=== PATIENT | female | born 1985 ===

== ENCOUNTER 2017-10-09 15:50 | Emergency (ER) | payer OTHER ==
[2017-10-09] MEDS ORDERED: Tdap Vaccine 0.5 ml Vial (10-64 yrs) IM ONE ×2 (16:47→17:06)
--- NOTE | 2017-10-09 16:48 | C.PDOC ---
History Of Present Illness 31 y/o female presents to the ER complaining of a right hand laceration sustained while she was washing a glass and cut her hand last night. Patient states that she put some type of cream in the cut. Denies having weakness and numbness. Time Seen by Provider: 10/09/17 16:07 Chief Complaint (Nursing): Abnormal Skin Integrity History Per: Patient History/Exam Limitations: no limitations Onset/Duration Of Symptoms: Days Current Symptoms Are (Timing): Still Present Severity: Moderate Past Medical History Reviewed: Historical Data, Nursing Documentation, Vital Signs Vital Signs: Last Vital Signs Temp 98.9 F 10/09/17 17:11 Pulse 65 10/09/17 17:11 Resp 18 10/09/17 17:11 BP 104/70 10/09/17 17:11 Pulse Ox 100 10/09/17 18:36 - Medical History PMH: No Chronic Diseases Other Surgeries: Hx of surgeries Family History: States: No Known Family Hx - Social History Hx Alcohol Use: No Hx Substance Use: No - Immunization History Hx Tetanus Toxoid Vaccination: Yes (5 years ago) Hx Influenza Vaccination: No Hx Pneumococcal Vaccination: No Review Of Systems Except As Marked, All Systems Reviewed And Found Negative. Skin: Positive for: Other (right hand laceration) Neurological: Negative for: Weakness, Numbness Physical Exam - Physical Exam Appears: Non-toxic, No Acute Distress Skin: Normal Color, Warm, Dry, Other (1 cm laceration to base of right 5th digit , gaping with some ointment inside) Head: Atraumatic, Normacephalic Eye(s): bilateral: Normal Inspection Nose: Normal Oral Mucosa: Moist Neck: Supple Chest: Symmetrical Neurological/Psych: Oriented x3, Normal Speech ED Course And Treatment O2 Sat by Pulse Oximetry: 100 (RA) Pulse Ox Interpretation: Normal Laceration - Laceration Repair Right 5th Digit Wound Length (In cm): 1cm Description Of Wound: Linear Wound Cleansed With: Betadine Wound Closure: Steri Strips (3) Wound Complexity: Simple Medical Decision Making Medical Decision Making: Impression: Finger Laceration Plan: --Tetanus Vaccination --Laceration Repair Updates: Laceration repair performed. Patient tolerated well. Patient has been discharged and instructed to return to ER for wound check in 3 days. Disposition Counseled Patient/Family Regarding: Diagnosis, Need For Followup - Disposition Disposition: HOME/ ROUTINE Disposition Time: 16:51 Condition: STABLE Additional Instructions: Regrese en 3 dfias para evaluar la herida. Instructions: Wound Care (DC) Forms: Gen Discharge Inst [place], [facility] ([place]) - POA Present On Arrival: None - Clinical Impression Clinical Impression: Laceration of finger - Scribe Statement The provider has reviewed the documentation as recorded by the Faboila Mckeon Provider Attestation: All medical record entries made by the Fabiola were at my direction and personally dictated by me. I have reviewed the chart and agree that the record accurately reflects my personal performance of the history, physical exam, medical decision making, and the department course for this patient. I have also personally directed, reviewed, and agree with the discharge instructions and disposition.
[2017-10-09 17:17] VITALS: BP 104/70; PULSE 65; RESP 18; TEMP 98.9
[2017-10-09 18:14] VITALS: O2SAT 100
== END 2017-10-09 17:15 | disposition home or self-care (01) ==
LOC: C.ER 15:50
DX: S61.216A Laceration without foreign body of right little finger without damage to nail, initial encounter (principal); W25.XXXA Contact with sharp glass, initial encounter; Y93.G1 Activity, food preparation and clean up; Y92.89 Other specified places as the place of occurrence of the external cause; Z23 Encounter for immunization

== ENCOUNTER 2018-04-03 12:49 | Outpatient (CLI) | payer OTHER | END 2018-04-03 12:50 | disposition home or self-care (01) | LOC: C.USIC 12:49 ==

== ENCOUNTER 2018-06-02 10:35 | Outpatient (CLI) | payer SELFPAY | END 2018-06-02 10:36 | disposition home or self-care (01) | LOC: C.USIC 10:35 ==

== ENCOUNTER 2018-06-26 08:59 | Outpatient (CLI) | payer SELFPAY | END 2018-06-26 09:00 | disposition home or self-care (01) | LOC: C.LAB 08:59 | DX: N92.6 Irregular menstruation, unspecified (principal) ==

== ENCOUNTER 2018-07-06 11:24 | Outpatient (CLI) | payer OTHER, SELFPAY | END 2018-07-06 11:25 | disposition home or self-care (01) | LOC: C.USIC 11:24 | DX: N92.6 Irregular menstruation, unspecified (principal) ==

== ENCOUNTER 2018-07-20 08:36 | Outpatient (CLI) | payer OTHER | END 2018-07-20 08:37 | disposition home or self-care (01) | LOC: C.LAB 08:36 | DX: Z34.01 Encounter for supervision of normal first pregnancy, first trimester (principal) ==